=== PATIENT | female | born 1955 | race Caucasian/White ===

== ENCOUNTER → 2018-12-07 12:31 | Outpatient (CLI) | payer OTHER, MEDICARE, SELFPAY ==
--- NOTE | 2018-12-07 | DI.RAD.S_ITS ---
PROCEDURE: XR HAND RT 2V INDICATIONS: HAND PAIN TECHNIQUE: 2 views of the hand(s) acquired. COMPARISON: None. FINDINGS: Bones: No fractures or dislocations. Carpal bones are normally aligned. No suspicious bony lesions. Osteophytic changes throughout right hand and wrist is seen particularly involving the first CMC joint and second through fifth DIP joints. Features suggestive of erosive osteoarthritis is seen in right fourth and fifth DIP joints. Soft tissues: No suspicious soft tissue calcifications. IMPRESSION: Osteoarthritis throughout right hand and wrist with features suggestive of erosive osteoarthritis in fourth and fifth PIP joints as above. No acute fracture or dislocation. Dictated by: David Rivera M.D. on 12/07/2018 at 14:12 Approved by: David Rivera M.D. on 12/07/2018 at 14:13
--- NOTE | 2018-12-07 | DI.RAD.S_ITS ---
PROCEDURE: XR HAND LT 2V INDICATIONS: HAND PAIN TECHNIQUE: 3 views of the hand(s) acquired. COMPARISON: None. FINDINGS: Bones: No fractures or dislocations. Carpal bones are normally aligned. No suspicious bony lesions. Osteophytic changes are noted throughout left hand and wrist particularly involving the second through fifth DIP joints with features suggestive of erosive osteoarthritis. Soft tissues: No suspicious soft tissue calcifications. IMPRESSION: Osteoarthritic changes throughout left hand and wrist with features suggestive of erosive osteoarthritis involving second through fifth DIP joints. No acute fracture or dislocation. Dictated by: David Rivera M.D. on 12/07/2018 at 14:11 Approved by: David Rivera M.D. on 12/07/2018 at 14:12
[2018-12-07 14:08] LABS: Erythrocyte Sedimentation Rate 2 MM/HR (0-20)
[2018-12-07 14:20] LABS: Alanine Aminotransferase 30 IU/L (9-52); Albumin 4.4 g/dL (3.5-5.0); Albumin Globulin Ratio 1.6 (1.0-2.8); Alkaline Phosphatase 73 U/L (38-126); Aspartate Aminotransferase 32 IU/L (14-36); BUN Creatinine Ratio 23.8 (6-22); Bilirubin Total 0.5 mg/dL (0.2-1.3); Blood Urea Nitrogen 19 mg/dL (7-17); Calcium 9.8 mg/dL (8.4-10.2); Carbon Dioxide 29 mmol/L (22-32); Chloride 102 mmol/L (98-107); Cholesterol 244 mg/dL (140-199); Estimated Glomerular Filt Rate > 60.0 mL/min (>60); Globulin 2.8 g/dL (1.7-4.1); Glucose 99 mg/dL (80-110); HDL Cholesterol 79 mg/dL (40-60); HEMOLYSIS < 15 (0-50); LDL Cholesterol Calculated 148 mg/dL (<100); Potassium 4.3 mmol/L (3.4-5.1); Sodium 140 mmol/L (137-145); Total Protein 7.2 g/dL (6.3-8.2); Triglycerides 86 mg/dL (35-150); Uric Acid 4.2 mg/dL (2.5-6.2)
[2018-12-07 14:21] LABS: C-Reactive Protein Quant < 0.5 mg/dL (<1.0)
[2018-12-07 14:58] LABS: Hemoglobin A1C% w Est Avg Glu 5.8 % (4.0-6.0)
[2018-12-08 16:06] LABS: HIV 1 and 2 Antibody NEGATIVE (NEGATIVE)
[2018-12-10 22:20] LABS: ANA Screen, IFA NEGATIVE (NEGATIVE)
== END ==
PROVIDERS: Visit Provider Internal Medicine
DX: M79.643 Pain in unspecified hand (principal); R73.9 Hyperglycemia, unspecified; E78.5 Hyperlipidemia, unspecified; R79.9 Abnormal finding of blood chemistry, unspecified; Z72.51 High risk heterosexual behavior
CPT/HCPCS: 36415; 73120; 80053; 80061; 83036; 84550; 85651; 86038; 86140; 86703

== ENCOUNTER → 2019-05-10 14:02 | Outpatient (CLI) | payer OTHER, MEDICARE, SELFPAY | PROVIDERS: PCP Internal Medicine; Referring Provider Internal Medicine; Visit Provider Internal Medicine | DX: R73.9 Hyperglycemia, unspecified (principal); R73.03 Prediabetes | CPT/HCPCS: 36415; 83036 ==

== ENCOUNTER → 2019-10-15 13:47 | Outpatient (CLI) | payer MEDICARE, OTHER, SELFPAY ==
--- NOTE | 2019-10-15 13:52 | DI.RAD.S_ITS ---
PROCEDURE: XR SHOULDER LT MIN 2V INDICATIONS: shoulder pain TECHNIQUE: 3 views of the shoulder were acquired. COMPARISON: None. FINDINGS: Bones: No fractures or dislocations. No suspicious bony lesions. Visualized ribs appear intact. There is a mild degree of AC joint osteoarthritis and no trauma found. Soft tissues: No suspicious soft tissue calcifications. IMPRESSION: Mild AC joint osteoarthritis, no other source of shoulder pain is found. Dictated by: Srinivasan Alexander M.D. on 10/15/2019 at 15:07 Approved by: Srinivasan Alexander M.D. on 10/15/2019 at 15:08
--- NOTE | 2019-10-15 13:52 | DI.RAD.S_ITS ---
PROCEDURE: XR CERVICAL SPINE 4V OR 5V INDICATIONS: neck pain TECHNIQUE: 5 views of the cervical spine acquired. COMPARISON: None. FINDINGS: Bones: No fractures or dislocations to the T1 level. Oblique images demonstrate no bony foraminal stenoses. Note is made of moderate degenerative disc disease at C5-6 and C6-7, with posterolateral projecting osteophytes at these 2 levels slightly greater on the left than the right producing asymmetric left greater than right foraminal stenosis potentially impinging on the course of the left C6 and left C7 nerve roots. Soft tissues: No prevertebral soft tissue swelling. IMPRESSION: Asymmetric left greater than right facet osteoarthritis is present potentially impinging on the course of the left C6 and left C7 nerve roots. Moderate degenerative disc disease C5-6 and C6-7, without abnormal subluxation. Dictated by: Srinivasan Alexander M.D. on 10/15/2019 at 15:06 Approved by: Srinivasan Alexander M.D. on 10/15/2019 at 15:07
== END ==
PROVIDERS: PCP Internal Medicine; Referring Provider Physical Medicine & Rehabilitation; Visit Provider Physical Medicine & Rehabilitation
DX: M75.42 Impingement syndrome of left shoulder (principal); M25.512 Pain in left shoulder; M19.012 Primary osteoarthritis, left shoulder; M50.122 Cervical disc disorder at C5-C6 level with radiculopathy
CPT/HCPCS: 72050; 73030

== ENCOUNTER → 2019-10-22 09:33 | Outpatient (CLI) | payer MEDICARE, OTHER, SELFPAY ==
--- NOTE | 2019-10-22 09:35 | DI.MRI.S_ITS ---
PROCEDURE: MR CERVICAL SPINE WO CON INDICATIONS: cervical radiculopathy TECHNIQUE: Noncontrast sagittal T1 spin echo and T2 fast spin echo, sagittal STIR, foraminal oblique sagittal T2 fast spin echo, and axial gradient echo or T2 fast spin echo through the cervical spine. COMPARISON: [facility], CR, XR CERVICAL SPINE 4V OR 5V, 10/15/2019, 13:52. FINDINGS: Image quality: Excellent. Alignment and Curvature: There is mild grade 1 retrolisthesis of C3 on C4, C4 on C5, and C5 on C6. Bone Marrow: Marrow demonstrates normal overall signal. Mild reactive signal within the endplates adjacent to the C4-C5, C5-C6, and C6-C7 intervertebral discs. Spinal Cord: Visualized spinal cord has normal size and signal. No cerebellar tonsillar herniation. Paraspinous Soft Tissues: No paravertebral masses. Prevertebral soft tissues are normal in thickness. C2-C3: Mild disc desiccation and diffuse disc bulge. Mild canal stenosis. Mild bilateral foraminal stenosis. C3-C4: Mild disc desiccation and diffuse disc bulge. Mild facet hypertrophy bilaterally. Mild canal stenosis. Mild bilateral foraminal stenosis. C4-C5: Mild disc height loss and desiccation. Mild diffuse disc bulge. Moderate left and mild right facet and uncovertebral hypertrophy bilaterally. Moderate canal stenosis. Mild right and severe left foraminal stenosis. Left C5 nerve root compression. C5-C6: Moderate disc height loss and desiccation. Mild diffuse disc bulge with superimposed left far lateral protrusion. Mild bilateral facet and uncovertebral hypertrophy. Severe canal stenosis. Mild cord flattening. Moderate right and severe left foraminal stenosis. Left C6 nerve root compression. C6-C7: Moderate disc height loss and desiccation. Mild diffuse disc bulge. Mild facet and uncovertebral hypertrophy bilaterally. Moderate canal stenosis. Moderate left and mild right foraminal stenosis. C7-T1: Moderate disc desiccation. Mild diffuse disc bulge. Mild bilateral facet and uncovertebral hypertrophy. Mild canal stenosis. Mild bilateral foraminal stenosis. IMPRESSION: 1. Multilevel degenerative disc and facet disease, as well as uncovertebral hypertrophy. 2. Multilevel canal stenosis, worst at C5-C6, where there is mild cord flattening present. 3. Multilevel foraminal stenoses, worst at C4-C5 and C5-C6 where there is associated intraforaminal nerve root compression. Recommend correlation with clinical symptoms to ascertain relevance of these findings. Dictated by: Fei Leone M.D. on 10/22/2019 at 10:15 Approved by: Fei Leone M.D. on 10/22/2019 at 10:19
== END ==
PROVIDERS: PCP Internal Medicine; Referring Provider Physical Medicine & Rehabilitation; Visit Provider Physical Medicine & Rehabilitation
DX: M47.22 Other spondylosis with radiculopathy, cervical region (principal); M50.11 Cervical disc disorder with radiculopathy, high cervical region; M48.02 Spinal stenosis, cervical region
CPT/HCPCS: 72141

== ENCOUNTER 2019-11-06 14:36 | Emergency (ER) | payer MEDICARE, OTHER, SELFPAY ==
[2019-11-06 14:46] VITALS: BP 148/75; PULSE 83; RESP 16; TEMP 36.9; O2SAT 97; BMI 27.6
--- NOTE | 2019-11-06 15:06 | ED_ITS ---
HPI - Recheck/Abnormal Lab/Rx General Chief Complaint: Recheck/Abnormal Lab/Rx Stated Complaint: Post surgery infection Time Seen by Provider: 11/06/19 14:53 Source: patient and family Mode of arrival: Ambulatory History of Present Illness HPI narrative: Patient is a 63-year-old female who presented after removal of breast implants on 10/25/2019 at the [facility]. She started having some fever and redness 5 days ago she was started on Bactrim by her physician yesterday he pulled her own drains with her physicians approval and today noticed increased swelling of the left breast. She currently has some clear fluid draining from the site but no significant erythema. Patient says that she has had chills un sure she has had any fever. MD complaint: wound re-check Related Data Home Medications Medication Instructions Recorded Confirmed conjugated estrogens 0.3 mg tablet 0.3 mg PO DAILY 04/14/19 11/06/19 zolpidem 5 mg tablet 5 - 10 mg PO BEDTIME tab 04/14/19 11/06/19 sulfamethoxazole-trimethoprim 1 tab PO DAILY 11/06/19 11/06/19 Allergies Allergy/AdvReac Type Severity Reaction Status Date / Time azithromycin Allergy rash Verified 11/06/19 14:54 cephalexin Allergy rash Verified 11/06/19 14:54 naproxen Allergy rash/swelli Verified 11/06/19 14:54 ng Review of Systems Review of Systems ROS Unobtainable: All systems reviewed & are unremarkable except as noted in HPI and below Constitutional Constitutional: Reports chills, Denies fever(s), Denies lethargy and Denies weakness Eyes Eyes: Denies change in vision, Denies eye discharge, Denies irritation and Denies loss of vision Cardiovascular Cardiovascular: Denies chest pain, Denies irregular heart rhythm, Denies lightheadedness, Denies palpitations, Denies dyspnea, Denies dyspnea on exertion and Denies orthopnea Respiratory Respiratory: Denies cough, Denies dyspnea, Denies dyspnea on exertion and Denies wheezing Gastrointestinal Gastrointestinal: Denies abdominal pain, Denies change in bowel habits, Denies diarrhea, Denies nausea and Denies vomiting Integumentary/Breasts Skin/Breast: Reports as per HPI, Reports breast swelling, Reports breast skin changes and Reports change in pigmentation Neurologic Neurologic: Denies loss of vision and Denies weakness Endocrine Endocrine: Denies palpitations Allergic/Immunologic Allergic/Immunologic: Denies wheezing Patient History Medical History Cervical radiculopathy (Chronic) Cervical spondylosis with radiculopathy (Chronic) Eroded bladder suspension mesh (Acute) Generalized anxiety disorder with panic attacks (Chronic) Hemorrhoid (Acute) Hyperlipidemia (Chronic) Impingement syndrome of left shoulder (Chronic) Insomnia (Chronic) Obstructive sleep apnea syndrome (Chronic) Osteoarthritis (Chronic) Paresthesia of arm (Acute) Surgical History H/O breast augmentation (Acute) H/O hemorrhoidectomy (Acute) H/O: hysterectomy (Acute) History of abdominoplasty (Acute) History of bladder repair surgery (Acute) History of blepharoplasty (Acute) History of rectal surgery (Acute) Family History Mother Breast cancer Father Heart disease Social History Smoking Status: Never smoker alcohol intake: current caffeine: Yes Type(s) of exercise: walking and yoga Smoking Status: Never smoker alcohol intake frequency: a few times a week Substance Use Type: does not use Exam Initial Vital Signs Initial Vital Signs: Vital Signs Temperature 98.5 F 11/06/19 14:46 Pulse Rate 83 11/06/19 14:46 Respiratory Rate 16 11/06/19 14:46 Blood Pressure 148/75 H 11/06/19 14:46 Pulse Oximetry 97 11/06/19 14:46 GENERAL: Well-appearing, well-nourished and in no acute distress. HEENT: Head atraumatic,EOMI, pupils reactive, face symmetric, moist mucous membranes Chest: Postoperative changes noted she actually does have swelling of the left breast there is clear fluid in the left inferior breast that is draining there is minimal erythema at this site she does have swelling noted CARDIOVASCULAR: Regular rate and rhythm without murmurs, rubs or gallops. RESPIRATORY: Breath sounds equal bilaterally, no wheezes rales or rhonchi. ABDOMEN: Soft, nontender. Normoactive bowel sounds all 4 quadrants. No gu arding or rebound. EXTREMITIES: Normal range of motion, no clubbing or edema. Neurovascularly intact NEUROLOGICAL: Alert and oriented x4.Normal gait and speech. SKIN: Warm, dry, no laceration, no petechiae, no rashes or lesions. Course Orders Ordered: ED Orders 11/06/19 15:10 Complete Blood Count AUTO DIFF Stat Comprehensive Metabolic Panel Stat Lactate (Lactic Acid) Stat Procalcitonin Stat 11/06/19 15:25 CT chest w con Stat 11/06/19 16:00 Blood Culture Stat Vital Signs Vital signs: Vital Signs - 8 hr 11/06/19 14:46 11/06/19 18:59 Temperature 98.5 F Pulse Rate 83 75 Respiratory Rate 16 18 Blood Pressure 148/75 H 116/57 L Pulse Oximetry 97 97 MDM - Recheck/Abnormal Lab/Rx Lab Data Attestation: I reviewed the patient's lab results. Result diagrams: 11/06/19 15:10 11/06/19 15:10 Labs: Lab Results 11/06/19 11/06/19 11/06/19 Range/Units 15:10 15:10 15:10 WBC 8.0 (4.5-11.0) X10^3/uL RBC 4.23 (4.0-5.2) X10^6/uL Hgb 13.4 (12.0-16.0) g/dL Hct 39.5 (36-46) % MCV 93.3 (80-100) fL MCH 31.7 (26-34) PG MCHC 34.0 (30-36) % RDW 13.6 (11.6-14.8) % Plt Count 262 (150-400) X10^3/uL Neut % (Auto) 72.0 (50-75) % Lymph % (Auto) 19.0 L (25-40) % [place] % (Auto) 6.7 (3-14) % Eos % (Auto) 1.5 L (2-4) % Baso % (Auto) 0.8 (0-2) % Neut # (Auto) 5800 (8578-7038) /uL Lymph # (Auto) 1500 (6916-5166) /uL [place] # (Auto) 500 (0-900) /uL Eos # (Auto) 100 (0-450) /uL Baso # (Auto) 100 (0-100) /uL Sodium 133 L (137-145) mmol/L Potassium 4.0 (3.4-5.1) mmol/L Chloride 99 (98-107) mmol/L Carbon Dioxide 26 (22-32) mmol/L BUN 16 (7-17) mg/dL Creatinine 0.84 (0.52-1.04) mg/dL Estimated GFR > 60.0 (>60) mL/min BUN/Creatinine Ratio 19.0 (6-22) Glucose 107 (80-110) mg/dL Lactate (0.7-2.1) mmol/L Calcium 8.8 (8.4-10.2) mg/dL Total Bilirubin 0.5 (0.2-1.3) mg/dL AST 37 H (14-36) IU/L ALT 59 H (<35) IU/L Alkaline Phosphatase 88 (38-126) U/L Total Protein 7.2 (6.3-8.2) g/dL Albumin 3.9 (3.5-5.0) g/dL Globulin 3.3 (1.7-4.1) g/dL Albumin/Globulin Ratio 1.2 (1.0-2.8) Procalcitonin < 0.05 (<0.5) ng/mL 11/05/ Range/Units 15:10 WBC (4.5-11.0) X10^3/uL RBC (4.0-5.2) X10^6/uL Hgb (12.0-16.0) g/dL Hct (36-46) % MCV (80-100) fL MCH (26-34) PG MCHC (30-36) % RDW (11.6-14.8) % Plt Count (150-400) X10^3/uL Neut % (Auto) (50-75) % Lymph % (Auto) (25-40) % [place] % (Auto) (3-14) % Eos % (Auto) (2-4) % Baso % (Auto) (0-2) % Neut # (Auto) (8509-1179) /uL Lymph # (Auto) (8936-8972) /uL [place] # (Auto) (0-900) /uL Eos # (Auto) (0-450) /uL Baso # (Auto) (0-100) /uL Sodium (137-145) mmol/L Potassium (3.4-5.1) mmol/L Chloride (98-107) mmol/L Carbon Dioxide (22-32) mmol/L BUN (7-17) mg/dL Creatinine (0.52-1.04) mg/dL Estimated GFR (>60) mL/min BUN/Creatinine Ratio (6-22) Glucose (80-110) mg/dL Lactate 0.8 (0.7-2.1) mmol/L Calcium (8.4-10.2) mg/dL Total Bilirubin (0.2-1.3) mg/dL AST (14-36) IU/L ALT (<35) IU/L Alkaline Phosphatase (38-126) U/L Total Protein (6.3-8.2) g/dL Albumin (3.5-5.0) g/dL Globulin (1.7-4.1) g/dL Albumin/Globulin Ratio (1.0-2.8) Procalcitonin (<0.5) ng/mL Urine Dip Bedside Urine Glucose Negative Bedside Urine Bilirubin - Negative Bedside Urine Ketone - Negative Urine Specific [place] 1.015 Bedside Urine Occult Blood - Negative Bedside Urine pH 6.0 Bedside Urine Protein - Negative Bedside Urine Urobilinogen - Negative Bedside Urine Nitrite - Negative Imaging Data CT scan - chest: Radiologist's Impression: PROCEDURE: CT CHEST W CON INDICATIONS: left breast surgery now infection TECHNIQUE: After the administration of intravenous contrast, 5 mm thick sections acquired from the pulmonary apices to the posterior costophrenic angles. 1 mm axial lung, 5 mm thick coronal and sagittal reformats and 7 mm axial MIP were acquired. For radiation dose reduction, the following was used: automated exposure control, adjustment of mA and/or kV according to patient size. COMPARISON: None. FINDINGS: Image quality: Excellent. Lungs and pleura: No acute air space opacities. No pleural effusions or pneumothorax. Central and peripheral airways are patent and normal in caliber. Mediastinum: Heart size is normal. No pericardial effusion. No mediastinal or hilar adenopathy by size criteria. Thoracic aorta and central pulmonary arteries are normal in size. Esophagus is normal in caliber. No hiatal hernia. Bones and chest wall: No suspicious bony lesions. No vertebral body compression fractures. No axillary or supraclavicular adenopathy by size criteria. Thyroid gland demonstrates no significant abnormality. Moderate levoconvex thoracolumbar scoliosis is seen. Postoperative change of the left breast can be seen, with soft tissue gas. Inflammatory changes are seen, including fluid along the deep aspect of the breast, as on series 7 image 150. No rim enhancement is seen of the fluid to suggest abscess at this time. Abdomen: Along the anterior aspect of the left lobe of the liver, there is a focal hypervascular lesion with peripheral puddling of contrast that measures up to 3.2 cm. Within the posterior aspect of the right lobe of the liver, as on series 7 image 243, there is a low-density focus seen that measures up to 2.2 cm. This measures 37 Hounsfield units. Within the lateral right liver, as on series 7, image 294, there is a 12 mm hypervascular lesion seen. Within the left liver dome, there is a 2.1 cm low-density lesion seen, as on series 7, image 225 that measures 55 Hounsfield units. An additional liver lesion can be seen involving the left lobe of the liver laterally measuring 14 mm and 5 Hounsfield units. This is attributed to a benign cyst. The visualized portions of the upper abdominal structures are otherwise unremarkable for imaging technique. IMPRESSION: Left breast postoperative change, with soft tissue gas and fluid. The fluid most likely represents a seroma, given the lack of surrounding enhancement. Please consider follow-up imaging if there is strong clinical concern for a developing abscess. 5 liver lesions are seen. One of which most likely represents a benign hemangioma, and a 2nd is attributed to a benign cyst. The other liver lesions are indeterminate. Please consider a follow-up liver protocol MRI (when clinically appropriate for further evaluation (assuming that there is no contraindication). Moderate levoconvex thoracolumbar scoliosis. Dictated by: Urban Steve M.D. on 11/06/2019 at 15:56 MDM Narrative Medical decision making narrative: Patient does not appear septic she is afebrile without leukocytosis normal lactic acid negative procalcitonin. No significant erythema digital or gross pus drainage. CT shows likely seroma rath er than abscess and clinically this correlates. 18:08 Dr. Omalley. Agrees with likely a seroma however recommend finishing course of Bactrim and follow-up in clinic. May require compression wrap such as an Kirk wrap. Discharge Plan Departure Patient Disposition: Home Clinical Impression: Postoperative seroma Qualifiers: Surgical complication system/body Area: skin Discharge Date/Time: 11/06/19 19:00 Instructions: DI for Postoperative Pain Activity Restrictions/Additional Instructions: *You have been diagnosed with postoperative seroma *What to do: Recommend compression to help it fluid out of the drain site. He may need to change the dressing frequently. *Continue to take medications as directed Finish antibiotic as previously prescribed *Follow up with your primary care provider in 2-3 days Will require follow-up in clinic next week *Return to ER if you should have redness fever pus, increased pain or any new, worsening or concerning symptoms Prescriptions: No Action sulfamethoxazole-trimethoprim 800-160 mg tablet 1 tab PO DAILY RF: 0 zolpidem [Ambien] 5 mg tablet 5 - 10 mg PO BEDTIME RF: 0 Premarin 0.3 mg tablet 0.3 mg PO DAILY RF: 0 Referrals: Nikhil Chavez MD [Primary Care Provider] -
--- NOTE | 2019-11-06 15:25 | DI.CT.S_ITS ---
PROCEDURE: CT CHEST W CON INDICATIONS: left breast surgery now infection TECHNIQUE: After the administration of intravenous contrast, 5 mm thick sections acquired from the pulmonary apices to the posterior costophrenic angles. 1 mm axial lung, 5 mm thick coronal and sagittal reformats and 7 mm axial MIP were acquired. For radiation dose reduction, the following was used: automated exposure control, adjustment of mA and/or kV according to patient size. COMPARISON: None. FINDINGS: Image quality: Excellent. Lungs and pleura: No acute air space opacities. No pleural effusions or pneumothorax. Central and peripheral airways are patent and normal in caliber. Mediastinum: Heart size is normal. No pericardial effusion. No mediastinal or hilar adenopathy by size criteria. Thoracic aorta and central pulmonary arteries are normal in size. Esophagus is normal in caliber. No hiatal hernia. Bones and chest wall: No suspicious bony lesions. No vertebral body compression fractures. No axillary or supraclavicular adenopathy by size criteria. Thyroid gland demonstrates no significant abnormality. Moderate levoconvex thoracolumbar scoliosis is seen. Postoperative change of the left breast can be seen, with soft tissue gas. Inflammatory changes are seen, including fluid along the deep aspect of the breast, as on series 7 image 150. No rim enhancement is seen of the fluid to suggest abscess at this time. Abdomen: Along the anterior aspect of the left lobe of the liver, there is a focal hypervascular lesion with peripheral puddling of contrast that measures up to 3.2 cm. Within the posterior aspect of the right lobe of the liver, as on series 7 image 243, there is a low-density focus seen that measures up to 2.2 cm. This measures 37 Hounsfield units. Within the lateral right liver, as on series 7, image 294, there is a 12 mm hypervascular lesion seen. Within the left liver dome, there is a 2.1 cm low-density lesion seen, as on series 7, image 225 that measures 55 Hounsfield units. An additional liver lesion can be seen involving the left lobe of the liver laterally measuring 14 mm and 5 Hounsfield units. This is attributed to a benign cyst. The visualized portions of the upper abdominal structures are otherwise unremarkable for imaging technique. IMPRESSION: Left breast postoperative change, with soft tissue gas and fluid. The fluid most likely represents a seroma, given the lack of surrounding enhancement. Please consider follow-up imaging if there is strong clinical concern for a developing abscess. 5 liver lesions are seen. One of which most likely represents a benign hemangioma, and a 2nd is attributed to a benign cyst. The other liver lesions are indeterminate. Please consider a follow-up liver protocol MRI (when clinically appropriate for further evaluation (assuming that there is no contraindication). Moderate levoconvex thoracolumbar scoliosis. Dictated by: Urban Steve M.D. on 11/06/2019 at 15:56 Approved by: Urban Steve M.D. on 11/06/2019 at 16:02
[2019-11-06 15:34] LABS: Add Manual Diff / Slide Review NO; Basophils Absolute Auto 100 /uL (0-100); Basophils Percent Auto 0.8 % (0-2); Eosinophils Absolute Auto 100 /uL (0-450); Eosinophils Percent Auto 1.5 % (2-4); Hematocrit 39.5 % (36-46); Hemoglobin 13.4 g/dL (12.0-16.0); Lymphocytes Absolute Auto 1500 /uL (1100-4500); Mean Corpuscular Hemoglobin 31.7 PG (26-34); Mean Corpuscular Volume 93.3 fL (80-100); Monocytes Absolute Auto 500 /uL (0-900); Monocytes Percent Auto 6.7 % (3-14); Neutrophils Absolute Auto 5800 /uL (1500-7000); Platelet Count 262 X10^3/uL (150-400); Red Blood Cell Count 4.23 X10^6/uL (4.0-5.2); Red Cell Distribution Width 13.6 % (11.6-14.8)
[2019-11-06 15:37] LABS: Lactate (Lactic Acid) 0.8 mmol/L (0.7-2.1)
[2019-11-06 15:38] LABS: Alanine Aminotransferase 59 IU/L (<35); Albumin 3.9 g/dL (3.5-5.0); Albumin Globulin Ratio 1.2 (1.0-2.8); Alkaline Phosphatase 88 U/L (38-126); Aspartate Aminotransferase 37 IU/L (14-36); Bilirubin Total 0.5 mg/dL (0.2-1.3); Blood Urea Nitrogen 16 mg/dL (7-17); Calcium 8.8 mg/dL (8.4-10.2); Carbon Dioxide 26 mmol/L (22-32); Chloride 99 mmol/L (98-107); Estimated Glomerular Filt Rate > 60.0 mL/min (>60); Globulin 3.3 g/dL (1.7-4.1); Glucose 107 mg/dL (80-110); HEMOLYSIS < 15 (0-50); Sodium 133 mmol/L (137-145); Total Protein 7.2 g/dL (6.3-8.2)
[2019-11-06 16:34] LABS: Procalcitonin < 0.05 ng/mL (<0.5)
[2019-11-06 18:59] VITALS: BP 116/57; PULSE 75; RESP 18; O2SAT 97
== END 2019-11-06 19:00 | disposition home or self-care (01) ==
PROVIDERS: Emergency Provider Emergency Medicine; PCP Internal Medicine
DX: L76.34 Postprocedural seroma of skin and subcutaneous tissue following other procedure (principal)
CPT/HCPCS: 71260; 80053; 81003; 83605; 84145; 85025; 87040; 99281; 99284; Q9967

== ENCOUNTER → 2020-04-05 12:42 | Outpatient (CLI) | payer MEDICARE, OTHER, SELFPAY ==
--- NOTE | 2020-04-05 12:47 | DI.MRI.S_ITS ---
PROCEDURE: MR SHOULDER LT WO CON INDICATIONS: Pain in left shoulder TECHNIQUE: Noncontrast oblique coronal T2 fast spin echo with fat saturation, oblique sagittal T1 spin echo and T2 fast spin echo with fat saturation, axial T1 spin echo and T2 fast spin echo with fat saturation through the shoulder. COMPARISON: [facility], CR, XR SHOULDER LT MIN 2V, 10/15/2019, 13:52. FINDINGS: Image quality: Excellent. Rotator cuff: Mild T2 signal elevation throughout the supraspinatus and infraspinatus tendons at the humeral insertion site, indicating tendinopathy. Multifocal low-grade partial-thickness tears within the anterior, mid, and posterior supraspinatus, as well as the anterior infraspinatus tendon at the humeral insertion site. Subscapularis and teres minor tendons are intact. No rotator cuff atrophy. Bones and bursae: No bone marrow contusions or fractures. Moderate acromioclavicular joint degeneration. The acromion demonstrates conventional anatomy, without an os acromiale. A small amount of subacromial-subdeltoid or subcoracoid bursal fluid is present. Capsule and soft tissues: Irregular high T2 signal intensity within the posterosuperior labrum. The long head of the biceps tendon demonstrates normal location and split type tearing. The rotator interval appears normal, without fibrosis. The coracohumeral ligament is normal in thickness. IMPRESSION: 1. Supraspinatus and infraspinatus tendinopathy with superimposed low-grade partial-thickness tears. No full-thickness rotator cuff tear. 2. Acromioclavicular joint osteoarthritis. 3. Subacromial bursitis. 4. Labral tearing. 5. Split type tearing of the biceps tendon. Dictated by: Fei Leone M.D. on 04/05/2020 at 13:53 Approved by: Fei Leone M.D. on 04/05/2020 at 13:55
== END ==
PROVIDERS: Referring Provider Orthopaedic Surgery; Visit Provider Orthopaedic Surgery
DX: M25.512 Pain in left shoulder (principal); M75.112 Incomplete rotator cuff tear or rupture of left shoulder, not specified as traumatic; S43.492A Other sprain of left shoulder joint, initial encounter; S46.112A Strain of muscle, fascia and tendon of long head of biceps, left arm, initial encounter; M19.012 Primary osteoarthritis, left shoulder; M75.52 Bursitis of left shoulder
CPT/HCPCS: 73221

== ENCOUNTER → 2020-06-27 07:09 | Outpatient (CLI) | payer MEDICARE, OTHER, SELFPAY ==
--- NOTE | 2020-06-27 | DI.MRI.S_ITS ---
PROCEDURE: MR CERVICAL SPINE WO CON INDICATIONS: Spinal stenosis, cervical region TECHNIQUE: Noncontrast sagittal T1 spin echo and T2 fast spin echo, sagittal STIR, foraminal oblique sagittal T2 fast spin echo, and axial gradient echo or T2 fast spin echo through the cervical spine. COMPARISON: [facility], CR, XR CERVICAL SPINE 6+ VIEWS, 06/19/2020, 9:03. , , MR CERVICAL SPINE WO CON, 10/22/2019, 9:49. FINDINGS: Image quality: Excellent. Alignment and Curvature: There is normal bony alignment. Bone Marrow: Marrow demonstrates normal overall signal. Spinal Cord: Visualized spinal cord has normal size and signal. No cerebellar tonsillar herniation. Paraspinous Soft Tissues: No paravertebral masses. Prevertebral soft tissues are normal in thickness. C2-C3: No canal stenosis or significant foraminal stenosis. Right facet hypertrophy. C3-C4: No canal stenosis. AP diameter of the canal is 12 mm. Bilateral facet hypertrophy. Mild bilateral foraminal narrowing. C4-C5: Mild disc bulge. Mild right uncovertebral joint hypertrophy. Bilateral facet hypertrophy. AP diameter of the canal is 12 mm. Mild right foraminal narrowing. Moderate left foraminal narrowing with flattening deformity on the exiting left C5 nerve root. C5-C6: Diffuse disc bulge. Bilateral uncovertebral joint hypertrophy, left greater than right. Bilateral facet hypertrophy. Mild canal stenosis. AP diameter of the canal is 9.5 mm. Moderate right foraminal narrowing with flattening deformity on the exiting right C6 nerve root. Severe left foraminal narrowing with left C6 foraminal nerve root impingement. C6-C7: Disc bulge. Bilateral uncovertebral joint hypertrophy. Bilateral facet hypertrophy. Moderate canal stenosis. AP diameter of the canal is 9 mm. Mild right and moderate left foraminal narrowing. There is flattening deformity on the exiting left C7 nerve root. C7-T1: Mild disc bulge. AP diameter of the canal is 11 mm. Bilateral facet hypertrophy. Mild right foraminal narrowing. IMPRESSION: 1. Diffuse spondylitic change. 2. Mild canal stenosis at C5-C6. Moderate canal stenosis at C6-C7. 3. Multilevel foraminal narrowing as described above. Findings include severe left foraminal narrowing at C5-C6. Dictated by: Dean Larios M.D. on 06/27/2020 at 9:28 Approved by: Dean Larios M.D. on 06/27/2020 at 9:52
== END ==
PROVIDERS: Referring Provider Physical Medicine & Rehabilitation Pain Medicine; Visit Provider Physical Medicine & Rehabilitation Pain Medicine
DX: M48.02 Spinal stenosis, cervical region (principal); M47.812 Spondylosis without myelopathy or radiculopathy, cervical region
CPT/HCPCS: 72141

== ENCOUNTER → 2021-03-13 12:38 | Outpatient (CLI) | payer MEDICARE, OTHER, SELFPAY ==
[2021-03-13 14:05] LABS: COVID19 -Nasal RAPID Negative (Negative)
== END ==
PROVIDERS: Visit Provider Physician Assistant
DX: Z20.822 Contact with and (suspected) exposure to COVID-19 (principal); J02.9 Acute pharyngitis, unspecified
CPT/HCPCS: 87635